=== PATIENT | female | born 1965 | race Caucasian/White ===

== ENCOUNTER → 2022-02-22 15:49 | Outpatient (CLI) | payer BC, SELFPAY ==
--- NOTE | ~2022-02-22 | DEXA_ITS ---
Bone Density Report Name: PHILIP KNOTT Age: 56 Sex: Female Ethnicity: White Date of : 1965 Indication: postmenopausal; screening for osteoporosis; Referring Provider: ANIL ROSARIO Study: Bone densitometry was performed. Exam Date: February 22, 2022 Accession number: [id number] Bone Density: Region BMD T-score Z-score Classification AP Spine (L1-L4) 1.101 0.5 1.8 Normal Femoral Neck (Left) 0.896 0.4 1.6 Normal Total Hip (Left) 1.044 0.8 1.7 Normal Femoral Neck (Right) 0.872 0.2 1.4 Normal Total Hip (Right) 1.008 0.5 1.4 Normal Total Hip Mean 1.026 0.7 1.6 Normal World Health Organization criteria for BMD impression classify patients as: Normal (T-score at or above -1.0), Osteopenia (T-score between -1.0 and -2.5), or Osteoporosis (T-score at or below -2.5). 10-year Fracture Risk: FRAX not reported because: All T-scores for Spine Total, Hip Total, Femoral Neck at or above -1.0 Previous Exams: Region Exam Age BMD T-score BMD Change BMD Change Date g/cm2 vs Baseline vs Previous AP Spine(L1-L4) 02/22/2022 56 1.101 0.5 0.109* 0.109* 01/31/2005 39 0.992 -0.5 Total Hip(Left) 02/22/2022 56 1.044 0.8 0.085* 0.085* 01/31/2005 39 0.958 0.1 Total Hip(Right) 02/22/2022 56 1.008 0.5 0.022 0.022 01/31/2005 39 0.986 0.4 *Denotes significance at 95% confidence level, LSC for AP Spine = 0.022 g/cm2, LSC for Total Hip = 0.027 g/cm2 Clinical Information Provided by Patient: Has used the following medications: Vitamin D, Calcium, MTV Patient maximum height was 68.5 Menopause Age: 50 Drinks caffeinated beverages Onset of menses at age 8 Number of children 1 Impression: The patient has normal bone mass. No significant bone loss was observed. Discussion: BONE DENSITY IS ABOVE THE MINIMUM DESIRABLE LEVEL AT ALL SKELETAL SITES TESTED. This patient?s bone mineral density is above the minimum desirable level (T-score -1.0 or better) at all sites measured. The patient should follow a healthful lifestyle (good nutrition with adequate calcium and vitamin D, and appropriate weight-bearing exercise). Follow-Up: Consider repeating this study in 5 years or sooner if there is some new clinical indication. Reported by: [facility] on 02/22/2022 4:46:00 PM. Reviewed, dictated and finalized at location AAlfredo DUNN
== END ==
PROVIDERS: PCP Family Medicine Adolescent Medicine; Visit Provider Family Medicine Adolescent Medicine
DX: Z78.0 Asymptomatic menopausal state (principal)
CPT/HCPCS: 77080

== ENCOUNTER → 2023-02-28 08:52 | Outpatient (CLI) | payer BC, SELFPAY ==
--- NOTE | ~2023-02-28 | MR_ITS ---
EXAMINATION: MR pituitary wo/w con DATE: 02/28/2023 09:48 INDICATION: Other specified abnormal findings of blood chemistry. Elevated prolactin levels. TECHNIQUE: Magnetic resonance imaging (MRI) of the brain and brainstem was performed without and with 20 mL Multihance intravenous contrast. Whole-brain sequences included sagittal T1-weighted FSE, axia l diffusion-weighted FS EPI, axial T2*-weighted GRE, axial T2-weighted FLAIR Propeller, and axial T2- weighted Propeller. Small cbvei-wp-jyph sequences included sagittal and coronal T1-weighted FSE cente red at the pituitary. Postcontrast sequences included small krlxv-ks-cldb coronal T1-weighted FSE in a time course and sagittal T1-weighted FSE and whole-brain axial T1-weighted FSE. Apparent diffusion coefficient (ADC) maps were created. COMPARISON: None. FINDINGS: There are no areas of restricted diffusion to suggest acute infarction. No intracranial hemorrhage. 1 1 x 7 x 5 mm lesion within the left anterior inferior pituitary which is slightly T2 hyperintense, hy perintense on the T2*weighted GRE sequence and which is hypoenhancing to the surrounding pituitary on the dynamic postcontrast imaging consistent with a pituitary adenoma which is at the borderline betw een microadenoma and macroadenoma. There is no overall enlargement of the pituitary with concave ceph alad margin and no extension into the suprasellar space. The more cephalad optic chiasm is unremarkab le. Normal midline infundibular stalk. There are no intraparenchymal signal abnormalities seen on the other pulse sequences. No other abnormally enhancing brain lesions identified. The ventricles are sy mmetric and normal in size. There are no abnormal extra-axial fluid collections. Flow voids are seen in the cerebral arteries on the T2-weighted sequences consistent with their expected patency. Visuali zed orbits and soft tissues are unremarkable. IMPRESSION: 1. 11 x 7 x 5 mm hypoenhancing pituitary adenoma at the left anterior inferior pituitary. Reviewed, dictated and finalized at location A. INATION BUILDING INSPECTOR
== END ==
PROVIDERS: PCP Nurse Practitioner Family; Visit Provider Nurse Practitioner Family
DX: R79.89 Other specified abnormal findings of blood chemistry (principal)
CPT/HCPCS: 70553; A9577

== ENCOUNTER 2023-08-29 10:08 | Outpatient (CLI) | payer BC, SELFPAY ==
--- NOTE | ~2023-08-29 | XR_ITS ---
EXAMINATION: XR ribs LT 2V w CXR 2V DATE: 08/29/2023 10:27 INDICATION: Cough, unspecified. TECHNIQUE: Frontal and lateral views of the chest and 2 views on 3 radiographs of the left ribs were obtained. COMPARISON: None. FINDINGS: CHEST TWO VIEWS: There is no pneumonia, pleural effusion, or pneumothorax. The heart size is normal. LEFT RIBS: There is no rib fracture. IMPRESSION: 1. No rib fracture. Reviewed, dictated and finalized at location A. IMPRESSION: 1. No rib fracture.
== END 2023-08-29 10:09 ==
LOC: MICIMG 10:10
PROVIDERS: PCP Nurse Practitioner Family; Visit Provider Nurse Practitioner Family
DX: R05.9 Cough, unspecified (principal); R07.81 Pleurodynia
CPT/HCPCS: 71046; 71100

== ENCOUNTER 2024-05-06 07:53 | Outpatient (CLI) | payer BC, SELFPAY ==
--- NOTE | ~2024-05-06 | MR_ITS ---
EXAMINATION: MR pituitary wo/w con DATE: 05/06/2024 08:46 INDICATION: Benign neoplasm of pituitary gland. TECHNIQUE: Magnetic resonance imaging (MRI) of the brain and brainstem was performed without with 15 mL MultiHance intravenous contrast. COMPARISON: Brain MRI 02/28/2023 FINDINGS: There is a 15 x 8 x 9 mm enhancing sellar mass extending into the clivus and sphenoid sinus . There is no acute ischemic infarct or intracranial hemorrhage. The ventricles are normal in size. T he orbits are normal. The mastoid air cells are normal. IMPRESSION: 1. 15 mm enhancing sellar mass extending into the clivus and sphenoid sinus, stable from 02/28/2023, c onsistent with a pituitary macroadenoma. Reviewed, dictated and finalized at location A. ER SHOP SUPERVISOR IMPRESSION: 1. 15 mm enhancing sellar mass extending into the clivus and sphenoid sinus, st able from 02/28/2023, consistent with a pituitary macroadenoma.
== END 2024-05-06 07:54 | disposition home or self-care (01) ==
PROVIDERS: PCP Nurse Practitioner Family; Visit Provider Nurse Practitioner Family
DX: D35.2 Benign neoplasm of pituitary gland (principal)
CPT/HCPCS: 70553; A9577

== ENCOUNTER 2025-01-15 14:33 | Outpatient (CLI) | payer BC, SELFPAY ==
--- OUTSIDE RECORDS SUMMARY | 2025-01-14 11:45 | XMS_ITS | Encounter Summary ---
Author Organization [facility] Healthcare Address [address] [place] [address] Care Team Providers Care Motor Coach Operator Name Role Phone Rajesh Gonzalez MD Unavailable [phone] Juan C Rios MD Primary Care Prov ider Agnes Montalvo NP Unavailable [phone] Reason for Visit * Reason Comments Breast Pain Left breast, tendern ess and inflammation, hard, firm area on the underneath side of breast starting Sunday, did have a little discharge out of nipple when massage on Sunday Encounter Details Date Type Department Care Team (Late st Contact Info) Description 01/14/2025 11:45 AM CDT Office Visit [facility] at [address] [address] Ade Zhou NP [address] [place] [address] [address] [place] [address] Mass of left breast, unspecified quadrant (Primary Dx) Social History Tobacco Use Types Packs/Day Years Used Date Smoking Tobacco: Never Smokeless Tobacco: Never Comments No Sex and Gender Information Value Date Recorded Sex Assigned at Not on file 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 Gender Identity Not on file Sexual Orientation Not on file documented as of this encounter Last Filed Vital Signs Vital Sign Reading Time Taken Comments Blood Pressure 125/84 01/14/2025 11:45 AM CDT Pulse 76 01/14/2025 11:45 AM CDT Temperature 36.4 C (97.6 F) 01/14/2025 11:45 AM CDT Respiratory Rate 16 01/14/2025 11:45 AM CDT Oxygen Saturation 97% 01/14/2025 11:45 AM CDT Inhaled Oxygen Concentration - - Weight 114.3 kg (252 lb) 01/14/2025 11:45 AM CDT Height - - Body Mass Index 37.21 12/23/2024 9:55 AM CDT documented in this encounter Progress Notes * Ade Zhou NP - 01/14/2025 11:45 AM CDT Images from the original note were not included. Subjective/Objective Patient ID: Gissel Bergman is a 59 y.o. female. This patient has verbally consented to recording this visit in order to utilize AI technology in generating this note. Chief Complaint Breast Pain (Left breast, tenderness and inflammation, hard, firm area on the underneath side of breast starting Sunday, did have a little discharge out of nipple when massage on Sunday ) History of Present Illness Gissel Bergman is a 59 year old female with a pituitary adenoma who presents with a new onset mass in the left breast. On Sunday, she experienced immediate pressure and discomfort in her left breast, with a large, firm area resembling a 'hard rubber ball.' Hot compresses and massage led to some nipple discharge on Sunday. She has a history of nipple discharge due to elevated prolactin levels from a pituitary adenoma. The mass is more engorged and swollen at the nipple area in the morning and shifts downward during the day. It is firm and hard, but not particularly tender unless palpated. There has been no recent trauma to the area, and she has not experienced any fever. She reports a scratchy throat for a couple of weeks. A mammogram one month ago was normal. Her left nipple has always been inverted, and there are no signs of redness or infection in the area. Review of Systems All other systems reviewed and are negative. Physical Exam BREAST: Large firm mass in left breast, 5.5 cm, without redness or abscess. Left nipple inverted. Physical Exam Vitals and nursing note reviewed. Exam conducted with a lead web developer present (Kelly Springer MA). Constitutional: General: She is not in acute distress. Appearance: Normal appearance. She is not ill-appearing, toxic-appearing or diaphoretic. Cardiovascular: Rate and Rhythm: Normal rate. Pulmonary: Effort: Pulmonary effort is normal. Chest: Skin: General: Skin is warm and dry. Capillary Refill: Capillary refill takes less than 2 seconds. Findings: No bruising, erythema, rash or wound. Neurological: Mental Status: She is alert and oriented to person, place, and time. Gait: Gait normal. Vitals: 01/14/25 1145 BP: 125/84 Pulse: 76 Resp: 16 Temp: 36.4 ??C (97.6 ??F) SpO2: 97% Weight: 114.3 kg (252 lb) No results found. Past Medical History: Diagnosis Date Asthma Mar 26, 1982 Chronic bronchitis (HCC) Mar 26, 1973 Pituitary adenoma (HCC) February, Current Outpatient Medications: bromocriptine (PARLODEL) 2.5 mg tablet, Take 1/2 tablet daily in the evening with dinner x 7 days, then increase to 1 tablet daily in evening with dinner, Disp: 30 tablet, Rfl: 6 calcium carbonate (CALCIUM 500 ORAL), Take by mouth, Disp: , Rfl: cetirizine (ZyrTEC) 10 mg tablet, Take by mouth daily, Disp: , Rfl: Denta 5000 Plus 1.1 % cream, BRUSH TWICE DAILY, Disp: , Rfl: levothyroxine (SYNTHROID) 88 mcg tablet, Take 1 tablet (88 mcg total) by mouth willow worker beforebreakfast, Disp: 30 tablet, Rfl: 6 -khhb-Hqlidprg-ihull 27 mg iron-1.13 mg-581.92 mg capsule, Take by mouth, Disp: , Rfl: No Known Allergies Social History Tobacco Use Smoking status: Never Smokeless tobacco: Never Substance and Sexual Activity Drug use: Never Sexual activity: Yes Partners: Male control/protection: Post-menopausal Alcohol Use: Not on file Past Surgical History: Procedure Laterality Date APPENDECTOMY BUNIONECTOMY DILATION AND CURETTAGE, DIAGNOSTIC / THERAPEUTIC Procedures Assessment/Plan 1. Mass of left breast, unspecified quadrant (Primary) Results RADIOLOGY Mammogram: Normal (11/2024) Assessment & Plan Left breast mass with nipple discharge Large, firm, non-tender left breast mass with nipple discharge. Differential includes cyst, abscess, malignancy, non malignant growth, infection unlikely. Normal recent mammogram, further imaging needed to rule out malignancy. - Refer to MAILER APPRENTICE for evaluation. - Recommend ultrasound and diagnostic mammogram. - All your OBGYN today for follow up. Patient sees Dr. Rajesh Gonzalez. - you may take ibuprofen as needed for pain Hyperprolactinemia due to pituitary adenoma Chronic condition managed by physician specialist. Disposition Treatment plan including expectations, follow up, and return precautions discussed with patient/parent, verbalizes understanding. Medication dosage, use, and potential adverse reactions discussed with patient/parent. Advised to follow up with PCP if symptoms do not resolve as expected or sooner if condition worsens. Signs/symptoms warranting ER evaluation reviewed. Patient and/or guardian was given an opportunity to ask questions, questions answered. Ade Zhou NP This office note has been partially dictated using [email or web address] software, and as a result portions of the record may have been created with this software. Occasional wrong-word or '[id number]-e-[id number]' substitutions may have occurred due to the inherent limitations of voice recognition software. Read the chartcarefully and recognize, using context, where substitutions have occurred. documented in this encounter Plan of Treatment Not on file documented as of this encounter Visit Diagnoses Diagnosis Mass of left breast, unspecified quadrant- Primary documented in this encounter Care Teams Motor Coach Operator Relationship Specialty Start Date End Date Juan C Rios MD [address] [place] [address] PCP - General Family Medicine 09/21/20 Rajesh Gonzalez MD [address] [place] [address] Referring Physician Obstetrics and Gynecology 09/06/20 Agnes Montalvo NP [address] [place] [address] [place] [address] Nurse Practitioner Family Practice 05/07/24 documented as of this encounter
--- NOTE | ~2025-01-15 | MMUS_ITS ---
EXAMINATION: MM diagnostic lisset LT w jessica, US breast LT limited INDICATION: 59-year old female; presents for evaluation of a palpable lump around the left nipple ongoing for one week. COMPARISON: None available TECHNIQUE: Digital breast tomosynthesis True lateral, CC and MLO views of the LEFT breast were obtained with computer-aided detection to assist in interpretation of the study. FINDINGS: The breasts are extremely dense, which lowers the sensitivity of mammography. There is a focal asymmetry composed of fat containing lesions centered in the outer central but involves the anterior and middle third of the breast. The anterior aspect of this lesion described correlates to the radiopaque skin marker. There are benign-appearing round calcifications scattered in the breast parenchyma. LEFT BREAST ULTRASOUND FINDINGS: Targeted evaluation of the subareolar region in the area of palpable lump identified by the patient was completed. There is a fairly homogeneous hyperechoic tubular structure that measure 4.2 x 2.1 x 1.5 cm in the subareolar location. There is surrounding peripheral vascularity but no definite internal vascularity. This finding correlates to the area of palpable lump. There is a 1.2 x 1 x 0.5 cm anechoic mass seen at 4:00, 4 cm FN compatible with a cyst. A 1.2 x 0.5 x 0.7 cm circumscribed hypoechoic mass with echogenic center is seen at 9:00, 2.5 cm posterior to the nipple compatible with an intramammary lymph node. IMPRESSION: Indeterminate left breast tubular hyperechoic lesion at subareolar location that correlates to the area of palpable lump. This finding may represent fluid collection such as an abscess. Recommend aspiration/biopsy under ultrasound guidance. RECOMMENDATION: Ultrasound-guided aspiration/biopsy of left breast hyperechoic lesion in the subareolar location. BI-RADS 4, SUSPICIOUS Reviewed, dictated and finalized at location B. IMPRESSION: Indeterminate left breast tubular hyperechoic lesion at subareolar location reji t correlates to the area of palpable lump. This finding may represent fluid col lection such as an abscess. Recommend aspiration/biopsy under ultrasound guidan ce. RECOMMENDATION: Ultrasound-guided aspiration/biopsy of left breast hyperechoic lesion in the hsu bareolar location. BI-RADS 4, SUSPICIOUS
--- OUTSIDE RECORDS SUMMARY | 2025-01-15 15:41 | XMS_ITS | Clinical Summary ---
Author Organization [facility] Address [address], [address] [address] Phone Care Team Providers Care Ship Steward Name Role Phone Juan C Rios MD Primary Care Provider + Chuy Lyles DO Unavailable [phone] Allergies No known active allergies Medications polyethylene glycol (MIRALAX) Powder Mix the entire bottle with 64 oz of a clear liquid. Use as directed by the office for colonoscopy prep. 255 g 0 6 Active Cetirizine HCl (ZYRTEC PO) Take by mouth daily. Active Multiple Vitamins-Minera ls (MULTIVITAMIN PO) Take by mouth daily. 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 Gender Identity Not on file Sexual Orientation Not on file Plan of Treatment Health Maintenance Due Date Last Done Comments Hepatitis C Virus (HCV) Screening 1965 TdaP Immunization 1965 Pap Smear 12/12/1984 Cervical Cancer Screening (CCS) 12/12/1993 HPV/Cotest 12/12/1993 Cologuard 12/12/2008 Immunochemical Fecal Occult Blood 12/12/2008 Pneumococcal Immunization (5 0+ years) (1 of 1 - PCV) 12/12/2013 Zoster Immunization (1 of 2) 12/12/2013 Influenza Immunization (#1) 2024 SARS-COV-2 Immunization ( - season) 2024 Colonoscopy 05/19/2025 05/19/2015 Colorectal Cancer Screening 05/19/2025 Respiratory Syncytial Virus (RSV) Immunization (Adult) (1 - 1-dose 75+ series) 12/12/2038 Hepatitis B Immunization Aged Out No longer eligible based on patient's age to complete this topic Human Papillomavirus (HPV) Immunization Aged Out No longer eligible b ased on patient's age to complete this topic Meningococcal Immunization (ACWY) Aged Out No longer eligible based on patient's age to complete this topic Rotavirus Immunization Aged Out No lo nger eligible based on patient's age to complete this topic Procedures Procedure Name Priority Date/Time Associated Diagnosis Comments COLONOSCOPY Routine 05/19/2015 from Last 3 Months or Most Recently Relevant to Health Maintenance Results * COLONOSCOPY (05/19/2015) Juan C Rios MD PROCEDURE/MINOR SURGICAL ORDERABLES Final Result from Last 3 Months or Most Recently Relevant to Health Maintenance Insurance [facility] Care Teams Ship Steward Relationship Specialty Start Date End Date Juan C Rios MD PCP - General Family Medicine 05/19/15 Chuy Lyles DO Gastroenterology 05/19/15
--- OUTSIDE RECORDS SUMMARY | 2025-01-15 15:41 | XMS_ITS | Clinical Summary ---
Author Organization [facility] Address [address] [place] [address] Care Team Providers Care Longwall Shearer Operator Name Role Phone Rajesh Gonzalez MD Unavailable [phone] Juan C Rios MD Primary Care Prov ider Agnes Montalvo NP Unavailable [phone] Allergies No known active allergies Medications cetirizine (ZyrTEC) 10 mg tablet Take by mouth daily Active [id number] -Lmfolate-algal 27 mg iron-1.13 mg-581.92 mg capsule Take by mouth Active calcium carbonate (CALCIUM 500 ORAL) Take by mouth Active Denta 5000 Plus 1.1 % cream BRUSH TWICE DAILY 5 Active levothyroxine (SYNTHROID) 88 mcg tablet Take 1 tablet (88 mcg total) by mouth talent acquisition coordinator before breakfast 30 tablet 6 5 Active bromocriptine (PARLODEL) 2.5 mg tablet Take 1/2 tablet daily in the evening with dinner x 7 days, then increase to 1 tablet daily in evening with dinner 30 tablet 6 5 Active Active Problems Problem Noted Date Diagnosed Date Pituitary adenoma 07/22/2024 Polyuria 07/22/2024 Hyperprolactinemia 07/22/2024 Family history of malignant melanoma 10/28/2020 Abnormal mammography 09/23/2020 Family history of breast cancer 09/23/2020 Family history of ovarian cancer 09/23/2020 Encounters Date Type Department Care Team Description 01/14/2025 11:45 AM CDT Office Visit [facility] at [address] [phone] Ade Zhou NP Mass of left breast, unspecified quadrant (Primary Dx) 12/23/2024 9:30 AM CDT - 12/23/2024 11:59 PM CDT Hospital Encounter [facility] Breast Imaging [facility] ([facility]) [address] [place] [address] Screening mammogram, encounter for Discharge Disposition: Discharge to home or self care from Last 3 Months Surgical History Surgery Date Site/Laterality Comments APPENDECTOMY BUNIONECTOMY DILATION AND CURETTAGE, DIAGNOSTIC / THERAPEUTIC Medical History Medical History Date Comments Chronic bronchitis (HCC) Mar 26, 1973 Asthma Mar 26, 1982 Pituitary adenoma (HCC) February, Family History Medical History Relation Name Comments No Known Problems Brother 1 Stewart No Known Problems Brother 2 Papito Diabetes Brother 3 Arnold Fibroids Daughter 1 Mrioslava Miscarriages / Stillbirths Daughter 2 Miroslava Mathur Basal cell carcinoma Father Tre Zuleimakayalh Cancer Father Tre Do Hearing loss Father Tre Zuleimakaylah Heart disease Father Tre Do Hypertension Father Tre Lei Prostate cancer Father Tre Lei Heart disease Maternal Grandfather Breast cancer Maternal Grandmother [place] Arabella Cancer Maternal Grandmother Estrella Arabella Esophageal cancer Maternal cousin nonsmok er Basal cell carcinoma Mother Nelli Lei Cancer Mother Nelli Lei Stroke Mother Nelli Lei Pancreatic cancer Mother's Brother 1 Melanoma Mother's Brother 2 Cancer Mother's Brother 3 Fabricio Arabella Cancer Mother's Brother 4 [place] Arabella Cancer Mother's Sister Agueda Rohit Ovarian cancer Mother's Sister Agueda Rohit Emphysema Paternal Grandfather history of smoking ectopic , rupture Paternal Grandmother <= age 30 Basal cell carcinoma Sister 1 Alejandra Melanoma Sister 1 Alejandra Thyroid disease Sister 1 Alejandra Basal cell carcinoma Sister 2 Ivanna [place] Cancer Sister 3 Alejandra Mueller Cancer Sister 4 Ivanna Martinez Relation Name Status Comments Brother 1 Stewart Alive Brother 2 Papito Alive Brother 3 Arnold Alive Daughter 1 Miroslava Alive Daughter 2 Miroslava Mathur Alive Father Tre Lei (Age 87) Maternal Grandfather (Age 75) Maternal Grandmother Estrella Arabella (Age 87) Maternal cousin (Age 60) Mother Nelli Lei Alive Mother's Brother 1 (Age 65) Mother's Brother 2 (Age 98) Mother's Brother 3 Fabricio Bell Alive Mother's Brother 4 [place] Bell Alive Mother's Sister Agueda Bee (Age 65) Paternal Grandfather (Age 88) Paternal Grandmother (Age 30) Sister 1 Alejandra Alive Sister 2 Ivanna [place] Alive Sister 3 Alejandra Mueller Alive Sister 4 Ivanna Martinez Alive Social History Tobacco Use Types Packs/Day Years Used Date Smoking Tobacco: Never Smokeless Tobacco: Never Tobacco Cessation:Counseling Given: Not Answered Comments No Sex and Gender Information Value Date Recorded Sex Assigned at Not on file 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 Gender Identity Not on file Sexual Orientation Not on file Obstetrics History Para Term AB IAB SAB Ectopic Multiple Livin g Live Births 1 1 Date Outcome GA Total Labor Labor/2nd/3rd Weight Sex Type Anes PTL Neyda A1 A5 Name Clin Last Filed Vital Signs Vital Sign Reading Time Taken Comments Blood Pressure 125/84 01/14/2025 11:45 AM CDT Pulse 76 01/14/2025 11:45 AM CDT Temperature 36.4 C (97.6 F) 01/14/2025 11:45 AM CDT Respiratory Rate 16 01/14/2025 11:45 AM CDT Oxygen Saturation 97% 01/14/2025 11:45 AM CDT Inhaled Oxygen Concentration - - Weight 114.3 kg (252 lb) 01/14/2025 11:45 AM CDT Height 175.3 cm (5' 9) 12/23/2024 9:55 AM CDT Body Mass Index 37.21 12/23/2024 9:55 AM CDT Plan of Treatment Health Maintenance Due Date Last Done Comments Cervical Cancer Screening 1965 Colon Cancer Screening-Colonoscopy 1965 Depression Screening 1965 Hepatitis C Screening 1965 Hepatitis B Screening 12/12/1981 Regular Well Visit/Exam 18-64 12/12/1981 DTaP/Tdap/Td Vaccine (1 - Tdap) 07/25/2011 07/24/2011 Zoster Vaccine (2 of 3) 04/06/2020 02/10/2020, 11/02 Influenza Vaccine (#1) 2024 , 01/22/2020, 03/03/2017, Additional history exists Breast Cancer Screening-Mammogram 12/23/2025 12/23/2024, 12/12/2023, 11/07/2022, Additional history exists Pneumococcal vaccine <65 Aged Out No longer eligible based on patient's age to complete this topic Procedures Procedure Name Priority Date/Time Associated Diagnosis Comments T4, FREE Routine 01/14/2025 9:12 AM CDT Secondary hypothyroidism Benign neoplasm of pituitary gland (HCC) Other specified abnormal findings of blood chemistry Pituitary adenoma (HCC) Polyuria Hyperprolactinemia PROLACTIN Routine 01/14/2025 9:12 AM CDT Secondary hypothyroidism Benign neoplasm of pituitary gland (HCC) Other specified abnormal findings of blood chemistry Pituitary adenoma (HCC) Polyuria Hyperprolactinemia SCREENING MAMMOGRAM BILATERAL W LJ Schedule Routine, Read Routine (OP Routine) 12/23/2024 9:55 AM CDT Screening mammogram, encounter for from Last 3 Months Results * Prolactin (01/14/2025 9:12 AM CDT) Prolactin 2.2 ng/mL [facility] Comment: Reference Range Females Non- 3.0-30.0 10.0-209.0 Postmenopausal 2.0-20.0 Blood 01/14/2025 9:12 AM CDT 01/14/2025 9:13 AM CDT us Patience Monteiro MD LAB BLOOD ORDERABLES Final Result [facility] [address] [place] [address] * T4, free (01/14/2025 9:12 AM CDT) Free T4 1.1 0.8 - 1.8 ng/dL [facility] Blood 01/14/2025 9:12 AM CDT 01/14/2025 9:13 AM CDT Patience Monteiro MD LAB BLOOD ORDERABLES Final Result [facility] [address] [place] [address] * Screening Mammogram Bilateral W Lj (12/23/2024 9:55 AM CDT) Anatomical Region Laterality Modality Breast Bilateral Mammography Impressions 12/24/2024 4:02 PM CDT Bilateral No evidence of malignancy in either breast. OVERALL BI-RADS FINAL ASSESSMENT: 1 - Negative RECOMMENDATION: Recommend bilateral annual screening mammography. Narrative 12/24/2024 4:02 PM CDT EXAMINATION: Screening Mammogram Bilateral W Lj: 12/23/2024 COMPARISON: Relevant prior studies available at the time of interpretation were reviewed, including the most recent mammogram on: 12/12/2023. TECHNIQUE: Mammography was performed with 2D and 3D digital breast tomosynthesis (DBT) images. CAD was utilized. BREAST PARENCHYMAL COMPOSITION: There are scattered areas of fibroglandular density. FINDINGS: Bilateral There is no suspicious mass, calcification, or architectural distortion in either breast. us Self Screening Mammogram IMG MAMMO PROCEDURES Fi nal Result from Last 3 Months Insurance [place] Care Teams Longwall Shearer Operator Relationship Specialty Start Date End Date Juan C Rios MD [address] [place] [address] PCP - General Family Medicine 09/21/20 Rajesh Gonzalez MD [address] [place] [address] Referring Physician Obstetrics and Gynecology 09/06/20 Agnes Montalvo NP [address] [place] [address] Nurse Practitioner Family Practice 05/07/24
== END 2025-01-15 14:34 | disposition home or self-care (01) ==
PROVIDERS: PCP Family Medicine Adolescent Medicine; Visit Provider Surgery
DX: N63.42 Unspecified lump in left breast, subareolar (principal); N64.52 Nipple discharge; R92.8 Other abnormal and inconclusive findings on diagnostic imaging of breast
CPT/HCPCS: 76642; 77061; 77065; G0279

== ENCOUNTER 2025-01-22 08:28 | Outpatient (CLI) | payer BC, SELFPAY ==
--- NOTE | ~2025-01-22 | MMUS_ITS ---
US breast biopsy LT w image, MM post biopsy diagnostic LT EXAMINATION: US GUIDED NEEDLE BIOPSY WITH VACUUM ASSISTANCE DATE: 01/22/2025 11:10 CDT INDICATION: Left breast mass seen on prior examination. Ultrasound-guided core biopsy is requested to evaluate for malignancy. BREAST PARENCHYMAL COMPOSITION: Not dense: There are scattered areas of fibroglandular density. TECHNIQUE AND FINDINGS: The risks and potential benefits of the procedure were discussed with the patient, and written informed consent was obtained. After sterile preparation of the left breast, 1% lidocaine was utilized for local anesthesia. 1% lidocaine with epinephrine was used for deep anesthesia. A 10G vacuum-assisted biopsy gun needle was advanced through to the outer edge of the region of interest from a lateral approach utilizing sonographic guidance. A total of 4 tissue core samples were obtained through the lesion. The lesions contain a combination of milky fluid and soft tissue. An Inrad tissue marker clip was then placed at the biopsy site. Hemostasis was achieved. The patient tolerated procedure well and there was no evidence of immediate complication. The patient was given verbal instructions partly is from the department. Left breast mammograms to document tissue marker clip placement. The tissue samples were submitted to surgical pathology for histologic analysis. IMPRESSION: 1. Successful ultrasound-guided vacuum-assisted biopsy of left breast mass with post procedure mammogram for marker placement. Please refer to pathology report for histologic analysis. Reviewed, dictated and finalized at location B. IMPRESSION: 1. Successful ultrasound-guided vacuum-assisted biopsy of left breast mass wit h post procedure mammogram for marker placement. Please refer to pathology repo rt for histologic analysis.
--- OUTSIDE RECORDS SUMMARY | 2025-01-22 08:36 | XMS_ITS | Clinical Summary ---
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
--- OUTSIDE RECORDS SUMMARY | 2025-01-22 08:36 | XMS_ITS | Encounter Summary ---
Author Organization [facility] Address [address] [place] [address] Phone Care Team Providers Care Machining And Assembly Supervisor Name Role Phone Rajesh Gonzalez MD Unavailable [phone] Juan C Rios MD Primary Care Prov ider Agnes Montalvo NP Unavailable [phone] Encounter Details Date Type Department Care Team (Late st Contact Info) Description 01/16/2025 Results Follow-Up [facility] Medicine Endocrinology Metabolism and Lipid [address] [facility] 13th [place] [address] [place] [phone] Patience Monteiro MD [address] [facility] [address] [place] [address] Prolactin, T4, free Social History Tobacco Use Types Packs/Day Years Used Date Smoking Tobacco: Never Smokeless Tobacco: Never Comments No Sex and Gender Information Value Date Recorded Sex Assigned at Not on file 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 Gender Identity Not on file Sexual Orientation Not on file documented as of this encounter Plan of Treatment Not on file documented as of this encounter Visit Diagnoses Not on filedocumented in this encounter Care Teams Machining And Assembly Supervisor Relationship Specialty Start Date End Date Juan C Rios MD [address] [place] [address] PCP - General Family Medicine 09/21/20 Rajesh Gonzalez MD [address] [place] [address] Referring Physician Obstetrics and Gynecology 09/06/20 Agnes Montalvo NP [address] [place] [address] Nurse Practitioner Family Practice 05/07/24 documented as of this encounter
--- OUTSIDE RECORDS SUMMARY | 2025-01-22 08:36 | XMS_ITS | Clinical Summary ---
Author Organization [facility] Address [address] [place] [address] Care Team Providers Care Supervisor Cured Meats Name Role Phone Rajesh Gonzalez MD Unavailable [phone] Juan C Rios MD Primary Care Prov ider Agnes Montalvo NP Unavailable [phone] Allergies No known active allergies Medications cetirizine (ZyrTEC) 10 mg tablet Take by mouth daily Active -mngm -Lmfolate-algal 27 mg iron-1.13 mg-581.92 mg capsule Take by mouth Active calcium carbonate (CALCIUM 500 ORAL) Take by mouth Active Denta 5000 Plus 1.1 % cream BRUSH TWICE DAILY 5 Active levothyroxine (SYNTHROID) 88 mcg tablet Take 1 tablet (88 mcg total) by mouth early childhood educator aide before breakfast 30 tablet 6 5 Active [...] Encounters Date Type Department Care Team Description 01/16/2025 Results Follow-Up [facility] Endocrinology Metabolism and Lipid [address] [facility] 13th [place] [address] [place] [address] Patience Monteiro MD Prolactin, T4, free 01/14/2025 11:45 AM CDT Office Visit [facility] Care at [address] [address] Ade Zhou NP Mass of left breast, unspecified quadrant (Primary Dx) 12/23/2024 9:30 AM CDT - 12/23/2024 11:59 PM CDT Hospital Encounter [facility] Breast Imaging [facility] ([facility]) [address] [place] [address] Screening mammogram, encounter for Discharge Disposition: Discharge [...] Diabetes Brother 3 Arnold Fibroids Daughter 1 Miroslava Miscarriages / Stillbirths Daughter 2 Miroslava Mathur Basal cell carcinoma Father Tre Lei Cancer Father Tre Lei Hearing loss Father Tre Blean Heart disease Father Tre Blean Hypertension Father Tre Lei Prostate cancer Father Tre Blean Heart disease Maternal Grandfather Breast cancer Maternal Grandmother [place] Arabella Cancer Maternal Grandmother Estrella Bell Esophageal cancer Maternal cousin nonsmok er Basal [...] Maternal Grandfather (Age 75) Maternal Grandmother Estrella Bell (Age 87) Maternal cousin (Age 60) Mother [...] on file 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 [address] [place] [id number] * T4, free (01/14/2025 9:12 AM CDT) Free T4 1.1 0.8 - 1.8 ng/dL [facility] Blood 01/14/2025 9:12 AM CDT 01/14/2025 9:13 AM CDT Patience Monteiro MD LAB BLOOD ORDERABLES Final Result [facility] [address] [place] [address] * Screening Mammogram Bilateral W Lj (12/23/2024 [...] calcification, or architectural distortion in either breast. Self Screening Mammogram IMG MAMMO PROCEDURES Fi nal Result from Last 3 Months Insurance [place] Care Teams Supervisor Cured Meats Relationship Specialty Start Date End Date Juan C Rios MD [address] [place] [address] PCP - General Family Medicine 09/21/20 Rajesh Gonzalez MD [address] [place] [address] Referring Physician Obstetrics and Gynecology 09/06/20 Agnes Montalvo NP [address] [place] [address] [place] [address] Nurse Practitioner Family Practice 05/07/24
--- NOTE | 2025-01-22 11:09 | S_PTH ---
PATIENT: Gissel Bergman LOC: [facility] U#:[id number] AGE/SX: 59/F ROOM: RE01/22/[address]: Stacey Benoit MD : 1965 BED: DIS: 01/22/2025 SPEC #: [id number] RECD: 01/22/25 14:38 STATUS: TERE REQ #: [id number] ANTOINE: 01/22/25 11:[address]: Stacey Benoit DEPT: [facility] Surgical RECD BY: Leeanne Lucero ENTERED: 01/22/25 14:38 SP TYPE: Surgical OTHR DR: Juan C Rios MD Tissues: A - Breast Biopsy Procedures: Hematoxylin and Eosin Stain Gross and Microscopic Level 4
== END 2025-01-22 08:29 | disposition home or self-care (01) ==
PROVIDERS: PCP Family Medicine Adolescent Medicine; Visit Provider Surgery
DX: N60.02 Solitary cyst of left breast (principal)
CPT/HCPCS: 19083; 77065; 88305; A4648

== ENCOUNTER 2025-02-27 10:26 | Outpatient (CLI) | payer BC, SELFPAY ==
--- NOTE | ~2025-02-27 | US_ITS ---
PROCEDURE(S): US breast LT limited INDICATION(S): N63.42 - Unspecified lump in left breast, subareolar . Previous biopsy of cystic cyst/dilated ductal structure in the retroareolar region. Palpable abnormality persists. COMPARISON(S): January 15 and January 22. TECHNIQUE: Grayscale and color Doppler imaging. ULTRASOUND FINDINGS: Sonography through the area in question demonstrates edema, with fluid interdigitating between tissue planes. There is no fluid collection to suggest an abscess. There is no solid mass. There is some focal skin thickening in the region. IMPRESSION: The findings are suggestive of inflammatory/infectious change. The patient should follow-up with Dr. Benoit. I discussed this case with Dr. Benoit BI-RADS 2 - Benign. Reviewed, dictated and finalized at location B. OR WEB DEVELOPER IMPRESSION: The findings are suggestive of inflammatory/infectious change. The patient shou ld follow-up with Dr. Benoit. I discussed this case with Dr. Benoit BI-RADS 2 - Benign.
== END 2025-02-27 10:27 | disposition home or self-care (01) ==
LOC: ANHFOHIMG 10:27
PROVIDERS: PCP Family Medicine Adolescent Medicine; Visit Provider Surgery
DX: N63.42 Unspecified lump in left breast, subareolar (principal); N63.23 Unspecified lump in the left breast, lower outer quadrant
CPT/HCPCS: 76642